=== PATIENT | male | born 1985 | race Caucasian/White ===

== ENCOUNTER 2017-11-07 13:35 | Emergency (ER) | payer MEDICAID ==
[~2017-11-07] VITALS: Ht 188 cm; Wt 77.3 kg
[~2017-11-07 13:35] MED LIST: ALPR-624 PO; GABA-530 PO; HYDR-569 PO; SERT50TA PO
[2017-11-07 13:44] VITALS: BP 144/86
[2017-11-07] MEDS ORDERED: NAPR-56 PO (13:49)
[2017-11-07] MEDS ORDERED: METH-360 PO (13:49)
[2017-11-07] MEDS ORDERED: ketorolac tromethamine 15mg/ml inj. IM ONE (13:50)
== END 2017-11-07 13:59 | disposition home or self-care (01) ==
LOC: ER 13:36
DX: S33.5XXA Sprain of ligaments of lumbar spine, initial encounter (principal); G62.9 Polyneuropathy, unspecified; J45.909 Unspecified asthma, uncomplicated; K21.9 Gastro-esophageal reflux disease without esophagitis; G89.29 Other chronic pain; Z98.890 Other specified postprocedural states; Z60.2 Problems related to living alone; Z56.0 Unemployment, unspecified; Z88.8 Allergy status to other drugs, medicaments and biological substances; Z79.899 Other long term (current) drug therapy; X58.XXXA Exposure to other specified factors, initial encounter; Y93.89 Activity, other specified; Y92.89 Other specified places as the place of occurrence of the external cause; Y99.8 Other external cause status
CPT/HCPCS: 96372; 99283; J1885

== ENCOUNTER 2020-05-26 15:01 | Emergency (ER) | payer MEDICAID ==
[~2020-05-26] VITALS: Ht 188 cm; Wt 75.0 kg
[~2020-05-26 15:01] MED LIST changes: +HYDR-4383 PO; -HYDR-569 PO; +METH-360 PO
--- NOTE | 2020-05-26 16:30 | NUR ---
pt is supine in bed, tearful, gave food and water as req by pt
[2020-05-26 16:35] LABS: ALBUMIN 3.7 G/DL (3.4-5.0); ALBUMIN/GLOBULIN RATIO 1.1 (1.1-1.5); ANION GAP 8 (8-16); ASPARTATE AMINO TRANSFERASE 38 U/L (10-37); BILIRUBIN,TOTAL 0.6 MG/DL (0.1-1.0); BLOOD UREA NITROGEN 23 MG/DL (7-18); BUN/CREATININE RATIO 23.5 (5.4-32.0); CALCIUM 8.9 MG/DL (8.5-10.1); CHLORIDE 104 MMOL/L (99-107); CREATININE 0.98 MG/DL (0.60-1.10); GLUCOSE 117 MG/DL (70-104); SODIUM 140 MMOL/L (135-145); TOTAL CARBON DIOXIDE 27.8 MMOL/L (24-32); eGFR 87 ML/MIN
[2020-05-26 16:36] LABS: ALANINE AMINOTRANSFERASE 48 U/L (12-78); ALKALINE PHOSPHATASE 71 IU/L (46-116); ETHANOL < 0.010 GM/DL (0.0-0.010)
[2020-05-26 16:59] LABS: BASOPHILS % (AUTO) 0.2 % (0-1); EOSINOPHILS # (AUTO) 0.7 X10'3 (0-0.9); EOSINOPHILS % (AUTO) 6.5 % (0-6); HEMATOCRIT 40.5 % (42.0-52.0); HEMOGLOBIN 13.4 g/dl (14.0-17.9); LYMPHOCYTES % (AUTO) 9.6 % (21-51); MEAN CORPUSCULAR HEMOGLOBIN 29.4 PG (27.0-31.0); MEAN CORPUSCULAR HGB CONC 33.1 g/dL (33.0-36.5); MEAN CORPUSCULAR VOLUME 89.1 FL (78-98); MEAN PLATELET VOLUME 8.2 FL (7.4-10.4); MONOCYTES # (AUTO) 0.8 X10'3 (0-0.9); MONOCYTES % (AUTO) 8.2 % (2-12); NEUTROPHILS # (AUTO) 7.6 X10'3 (1.8-7.7); NEUTROPHILS % (AUTO) 75.5 % (42-75); PLATELET COUNT 154 X10'3 (140-440); RED BLOOD COUNT 4.55 X10'6 (4.70-6.10); RED CELL DISTRIBUTION WIDTH 13.7 % (11.5-14.5); WHITE BLOOD COUNT 10.1 X10'3 (4.5-11.0)
--- NOTE | 2020-05-26 17:33 | NUR ---
pt is supine on gurney, remains tearful, no needs at this time
--- NOTE | 2020-05-26 18:30 | NUR ---
received pt sitting upright in bed having dinner paln of care updated pt in the direct line of site of nursing staff
--- NOTE | 2020-05-26 19:00 | NUR ---
patient changed into greens
--- NOTE | 2020-05-26 19:48 | NUR ---
pt medically cleared awaitng amother urine speciman as a toxic was only ran
--- NOTE | 2020-05-26 19:58 | NUR ---
pt transfered over to of bed 25 report given to Cristal Teresa
[2020-05-26] MEDS ORDERED: NO HOME MEDS (20:06)
--- NOTE | 2020-05-26 20:24 | NUR ---
The patient moved to bed # 25 in the ER. He was cooperative with the move. He was updated on his plan of care. Reviewed home medications with him and he stated that the last time he had rx medications filled by an MD was some time ago when he was last seen by Dr. Alexander. He was tearful. He statead that his sleep has been sporadic and that he feels he can't shut his mind off and that he is having racing thoughts. He denies psychotic symptoms. He currently denies that he wants to end his life and added that he loved his family and that it would be selfish of him to commit suicide. He admits to problems with substances. He reports that the fentanyl that he overdosed was purchased on the street. He admits to periodic heroin use of 4-5 times per month. He stated that he doesn't like meth but when its offered to him he is unable to decline. He then stated, "I need help"
[2020-05-26 20:27] LABS: URINE AMPHETAMINE SCREEN POSITIVE (Neg); URINE BARBITUATE SCREEN NEGATIVE (Neg); URINE BENZODIAZEPINES SCREEN NEGATIVE (Neg); URINE CANNABINOID SCREEN POSITIVE (Neg); URINE COCAINE SCREEN NEGATIVE (Neg); URINE METHADONE SCREEN NEGATIVE (Neg); URINE OPIATE SCREEN POSITIVE (Neg); URINE PHENCYCLIDINE SCREEN NEGATIVE (Neg)
--- NOTE | 2020-05-26 22:22 | NUR ---
The patient appears to be sleeping
--- NOTE | 2020-05-27 00:06 | NUR ---
The patient appears to be sleeping.
--- NOTE | 2020-05-27 01:03 | NUR ---
The patient appears to be sleeping
--- NOTE | 2020-05-27 02:51 | NUR ---
The patient appears to be sleeping
--- NOTE | 2020-05-27 04:43 | NUR ---
The patient appears to be sleeping
--- NOTE | 2020-05-27 05:43 | NUR ---
PACKET FAXED TO [facility]
--- NOTE | 2020-05-27 12:57 | NUR ---
Patient eating lunch tray with no assistance.
--- NOTE | 2020-05-27 13:27 | NUR ---
SPOKE TO ARAVIND FROM [facility] [phone]. UPDATED HIM THAT NO MEDICATIONS HAVE BEEN ORDERED ON THIS PATIENT. WILL HAVE PRIMARY RN CALL WHEN SHE COMES BACK FROM LUNCH.
--- NOTE | 2020-05-27 13:33 | NUR ---
PATIENT COMPLAINING OF MID TO LEFT STOMACH PAIN OFFERED TO OBTAIN AN ORDER FOR MEDICATION IF SHE WOULD TAKE IT. PATIENT REFUSED TO TAKE ANY MEDICATION AND SAID "i'LL JUST WAIT HERE AND "
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
[2020-05-27 13:55] LABS: CLARITY,URINE CLOUDY (Clear); COLOR,URINE YELLOW (Yellow); GLUCOSE, URINE NEGATIVE (Neg); KETONES,URINE NEGATIVE (Neg); LEUKOCYTE ESTERASE ,URINE NEGATIVE (Neg); NITRITES, URINE NEGATIVE (Neg); OCCULT BLOOD,URINE NEGATIVE (Neg); PH,URINE 8.5 (4.8-8.0); PROTEIN,URINE NEGATIVE (Neg)
[2020-05-27 14:09] LABS: RBC,URINE NONE SEEN /HPF (0-2); UA COLLECTION TYPE CLN CATCH MIDSTREAM; WBC,URINE 0-4 /HPF (0-4)
[2020-05-27 14:10] LABS: AMORPHOUS PHOSPHATES 4+; BACTERIA,URINE NONE SEEN /HPF (Neg); SQUAMOUS EPITHELIAL CELL,UR FEW /LPF (FEW)
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
--- NOTE | 2020-05-27 14:51 | NUR ---
UA and Covid results faxed to [facility].
--- NOTE | 2020-05-27 16:42 | NUR ---
pt resting in bed quietly. No behavior noted.
--- NOTE | 2020-05-27 17:49 | NUR ---
Spoke to Dionte at [facility]. all information requested given. Labs results faxed. waiting patient registration rep patient registration rep back on regars to pt's transfer. Patient has been sleeping in bed. No behaviors noted troughout the shift.
--- NOTE | 2020-05-27 18:12 | NUR ---
Spoke to Dionte at [facility]. 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
[2020-05-27 19:09] VITALS: BP 148/90
== END 2020-05-27 19:13 ==
LOC: ER 15:02
DX: T40.412A Poisoning by fentanyl or fentanyl analogs, intentional self-harm, initial encounter (principal); Z20.822 Contact with and (suspected) exposure to COVID-19; R40.20 Unspecified coma; G62.9 Polyneuropathy, unspecified; J45.909 Unspecified asthma, uncomplicated; K21.9 Gastro-esophageal reflux disease without esophagitis; G89.29 Other chronic pain; F15.90 Other stimulant use, unspecified, uncomplicated; F11.90 Opioid use, unspecified, uncomplicated; Z56.0 Unemployment, unspecified; Z87.312 Personal history of (healed) stress fracture; Z88.8 Allergy status to other drugs, medicaments and biological substances; Z79.899 Other long term (current) drug therapy; Y92.89 Other specified places as the place of occurrence of the external cause
CPT/HCPCS: 36415; 71045; 80053; 80305; 80320; 81001; 84443; 85025; 87426; 99285